=== PATIENT | male | born 1955 | race Caucasian/White ===

== ENCOUNTER 2025-03-25 08:40 | Outpatient (CLI) | payer OTHER ==
[~2025-03-25 08:40] MED LIST: CIPRO500 MG PO; INTESTINEX1 CA1 PO; PEPCID40 MG PO; ZOFRAN8 MG PO
== END 2025-03-25 08:43 | disposition home or self-care (01) ==
LOC: SONOGRAMA 08:40
PROVIDERS: ATTEND Pathology Anatomic Pathology & Clinical Pathology
DX: D44.0 Neoplasm of uncertain behavior of thyroid gland (principal); D34 Benign neoplasm of thyroid gland; E07.89 Other specified disorders of thyroid; E04.2 Nontoxic multinodular goiter